=== PATIENT | male | born 1990 | race Caucasian/White ===

== ENCOUNTER 2017-11-10 01:26 | Observation (INO) | payer BC, OTHER ==
[2017-11-10] VITALS (22 sets, daily range): BP systolic 114–155; BP diastolic 61–95
[~2017-11-10] VITALS: Ht 180.3 cm; Wt 109.0 kg
[~2017-11-10 01:26] MED LIST: DULO-31 PO
[2017-11-10] MEDS: ondansetron/PF 4mg/2ml inj IV ONE ×2 (01:50→02:17)
[2017-11-10] MEDS: morphine 4 MG/ML inj SYRINge IV ONE ×2 (01:50→02:17)
[2017-11-10] MEDS ORDERED: normal saline 1000ML IV soln IVB ONE (01:50)
[2017-11-10 01:51] LABS: BASOPHILS # (AUTO) 0.1 X10'3 (0-0.2); BASOPHILS % (AUTO) 0.7 % (0-1); EOSINOPHILS # (AUTO) 0.2 X10'3 (0-0.9); EOSINOPHILS % (AUTO) 2.6 % (0-6); HEMATOCRIT 46.1 % (42.0-52.0); HEMOGLOBIN 15.2 g/dl (14.0-17.9); LYMPHOCYTES # (AUTO) 3.7 X10'3 (1.1-4.8); LYMPHOCYTES % (AUTO) 39.6 % (21-51); MEAN CORPUSCULAR HEMOGLOBIN 27.1 PG (27.0-31.0); MEAN CORPUSCULAR HGB CONC 32.9 % (33.0-36.5); MEAN CORPUSCULAR VOLUME 82.3 FL (78-98); MEAN PLATELET VOLUME 8.4 FL (7.4-10.4); MONOCYTES # (AUTO) 0.6 X10'3 (0-0.9); NEUTROPHILS # (AUTO) 4.7 X10'3 (1.8-7.7); NEUTROPHILS % (AUTO) 50.1 % (42-75); PLATELET COUNT 264 X10'3 (140-440); RED CELL DISTRIBUTION WIDTH 12.6 % (11.5-14.5); WHITE BLOOD COUNT 9.3 X10'3 (4.5-11.0)
[2017-11-10] MEDS ORDERED: NO HOME MEDS (01:51)
[2017-11-10 02:02] LABS: PARTIAL THROMBOPLASTIN TIME 26 SECONDS (22-32); PROTHROMBIN TIME 9.9 SECONDS (9.0-12.0)
[2017-11-10 02:03] LABS: ALANINE AMINOTRANSFERASE 36 U/L (12-78); ALBUMIN 3.9 G/DL (3.4-5.0); ALBUMIN/GLOBULIN RATIO 1.1 (1.1-1.5); ALKALINE PHOSPHATASE 68 IU/L (46-116); ANION GAP 8 (8-16); ASPARTATE AMINO TRANSFERASE 19 U/L (10-37); BILIRUBIN,TOTAL 0.4 MG/DL (0.1-1.0); BLOOD UREA NITROGEN 18 MG/DL (7-18); BUN/CREATININE RATIO 18.2 (5.4-32.0); CALCIUM 8.9 MG/DL (8.5-10.1); CHLORIDE 104 MMOL/L (99-107); CREATININE 0.99 MG/DL (0.60-1.10); GLUCOSE 117 MG/DL (70-104); LIPASE 109 U/L (73-393); POTASSIUM 3.5 MMOL/L (3.5-5.1); SODIUM 138 MMOL/L (135-145); TOTAL PROTEIN 7.5 G/DL (6.4-8.2); eGFR > 90 ML/MIN
[2017-11-10] MEDS ORDERED: iohexol 300mg/ml 100ml inj. ONE (02:05)
[2017-11-10 02:08] LABS: CLARITY,URINE Clear (Clear); COLOR,URINE Yellow (Yellow); GLUCOSE, URINE Negative (Neg); KETONES,URINE Negative (Neg); LEUKOCYTE ESTERASE ,URINE Trace (Neg); NITRITES, URINE Negative (Neg); OCCULT BLOOD,URINE Negative (Neg); PROTEIN,URINE Negative (Neg)
[2017-11-10 02:10] LABS: UA COLLECTION TYPE CLN CATCH MIDSTREAM
[2017-11-10 02:14] LABS: BACTERIA,URINE 3+ /HPF (Neg); MUCUS STRANDS FEW /LPF (Neg); RBC,URINE 0-2 /HPF (0-2); SQUAMOUS EPITHELIAL CELL,UR FEW /LPF (FEW)
[2017-11-10] MEDS ORDERED: piperacillin/tazo 3.375gm/50ml 50 ML IV STA (02:49)
[2017-11-10] MEDS ORDERED: dextrose 5%-1/2 normal saline 1,000 ML IV ONE (02:52)
[2017-11-10] MEDS ORDERED: ondansetron/PF 4mg/2ml inj IV ONE (03:00)
[2017-11-10] MEDS ORDERED: morphine 4 MG/ML inj SYRINge IV ONE (03:00)
[2017-11-10] MEDS: normal saline 1000ml 1,000 ML IV SCH ×3 (03:18→19:42)
[2017-11-10] MEDS: morphine 4 MG/ML inj SYRINge IV PRN ×2 (04:34→08:42)
[2017-11-10] MEDS: piperacillin/tazo 3.375gm/50ml 50 ML IV SCH ×3 (08:51→19:42)
[2017-11-10] MEDS: ondansetron/PF 4mg/2ml inj IV PRN ×2 (15:43→17:39)
[2017-11-10] MEDS ORDERED: BUPIVAcaine/PF 2.5mg/ml (0.25%) 10ml vial ONE (15:53)
[2017-11-10] MEDS ORDERED: ondansetron/PF 4mg/2ml inj IV PRN (16:20)
[2017-11-10] MEDS ORDERED: fentaNYL/PF 50MCG/1 ML 2ML syringe IV PRN (16:20)
[2017-11-10] MEDS ORDERED: hydrALAZINE 20mg/ml inj. IV PRN (16:20)
[2017-11-10] MEDS ORDERED: ringers solution, lacted 1,000 ML IV SCH (16:20)
[2017-11-10] MEDS ORDERED: morphine 4 MG/ML inj SYRINge IV PRN ×2 (16:20)
[2017-11-10] MEDS ORDERED: labetalol 5mg/ml 20ml inj. IV PRN (16:20)
[2017-11-10] MEDS ORDERED: ondansetron/PF 4mg/2ml inj ONE (16:21)
[2017-11-10] MEDS ORDERED: sevoflurane 250ml liquid IH ONE (16:21)
[2017-11-10] MEDS ORDERED: midazolam 2 mg/2 ml injection ONE (16:24)
[2017-11-10] MEDS ORDERED: fentaNYL /PF 50mcg/ml 5ml ampule ONE (16:25)
[2017-11-10] MEDS ORDERED: dexamethasone sod phosphate 4mg/ml inj. ONE (16:57)
[2017-11-10] MEDS ORDERED: LIDOcaine 2% (20mg/ml) 5ml vial ONE (16:57)
[2017-11-10] MEDS ORDERED: rocuronium 10mg/ml inj IV ONE (16:57)
[2017-11-10] MEDS ORDERED: propofol inj 20 ML IV ONE (16:57)
[2017-11-10] MEDS ORDERED: neostigmine methylsulfate 1 MG/ML 10ml vial ONE (16:57)
[2017-11-10] MEDS ORDERED: glycopyrrolate 0.2mg/ml inj ONE (16:57)
[2017-11-10] MEDS: fentaNYL/PF 50MCG/1 ML 2ML syringe IV PRN ×2 (17:40→17:50)
[2017-11-10] MEDS ORDERED: albuterol 60 PUFF/8GM Inhaler IH ONE (17:58)
[2017-11-10] MEDS ORDERED: ketorolac trometh. 30mg/ml inj. IV PRN (19:35)
[2017-11-10] MEDS ORDERED: ketorolac trometh. 30mg/ml inj. IV ONE (19:35)
[2017-11-10] MEDS: lactobacillus rhamnosus 10,000 MMU CELLS/CAPSULE PO SCH (20:00)
[2017-11-11] MEDS: piperacillin/tazo 3.375gm/50ml 50 ML IV SCH ×3 (01:33→13:29)
[2017-11-11 05:22] VITALS: BP 128/84
[2017-11-11 07:07] VITALS: BP 119/58
[2017-11-11] MEDS: lactobacillus rhamnosus 10,000 MMU CELLS/CAPSULE PO SCH (07:53)
[2017-11-11 12:00] VITALS: BP 103/55
[2017-11-11] MEDS ORDERED: DOCU-28 PO (13:45)
[2017-11-11] MEDS ORDERED: HYDR-569 PO (13:45)
== END 2017-11-11 16:00 | disposition home or self-care (01) ==
LOC: ER 01:27 → ED HOLD 03:18 → SUR 3N 03:50
PROVIDERS: ADMIT Internal Medicine; ATTEND Family Medicine
DX: K35.80 Unspecified acute appendicitis (principal); J45.909 Unspecified asthma, uncomplicated
CPT/HCPCS: 36415; 44950; 74177; 80053; 81001; 83690; 85025; 85610; 85730; 87070; 87088; 96365; 96366; 96375; 96376; 99285; G0378; J1100; J1885; J2001; J2250; J2270; J2405; J2543; J2704; J2710; J3010; J3490; J7030; J7120; Q9967; A7000